=== PATIENT | male | born 1970 | race Two or more races ===

== ENCOUNTER 2021-05-08 19:40 | Emergency (ER) | payer OTHER ==
[~2021-05-08] VITALS: Ht 182.9 cm; Wt 83.9 kg
[2021-05-08] MEDS ORDERED: PERCOCET 5-3251 EACH PO (22:49)
== END 2021-05-09 01:14 | disposition home or self-care (01) ==
LOC: ER 19:40
DX: N50.819 Testicular pain, unspecified (principal); T81.49XA Infection following a procedure, other surgical site, initial encounter; R10.30 Lower abdominal pain, unspecified

== ENCOUNTER 2025-07-30 23:09 | Emergency (ER) | payer OTHER ==
[~2025-07-30] VITALS: Ht 182.9 cm; Wt 97.1 kg
[~2025-07-30 23:09] MED LIST: PERCOCET 5-3251 EACH PO
[2025-07-30 23:58] VITALS: BP 117/77; O2SAT 97
[2025-07-31] MEDS ORDERED: LACTOBACILLUS ACIDOPHILUS 1 CAP CAP PO STA ×2 (00:33→07:28)
[2025-07-31] MEDS ORDERED: HYOSCYAMINE SULFATE 0.125 MG TAB.SUBL SL STA (00:34)
[2025-07-31] MEDS ORDERED: 0.9 % SODIUM CHLORIDE 1,000 ML IV ONE (00:45)
[2025-07-31] MEDS ORDERED: LACTOBACILLUS ACIDOPHILUS 1 CAP CAP PO ONE (02:35)
[2025-07-31] MEDS ORDERED: HYOSCYAMINE SULFATE 0.125 MG TAB.SUBL ONE (02:35)
[2025-07-31 03:25] LABS: BASO % 0.4 % (0.1-1.2); EOS # 0.20 (0.04-0.54); EOS % 2.6 % (0.7-7.0); LYMPH # 1.90 (1.18-3.74); LYMPH % 25.0 % (19.3-53.1); MEAN PLATELET VOLUME 10.00 fl (9.4-12.4); MONO # 0.82 (0.24-0.82); MONO % 10.8 % (4.7-12.5); NEUT # 4.62 (1.56-6.13); NEUT % 60.9 % (34.0-71.1); RED CELL DISTRIBUTION WIDTH 13.1 % (11.6-14.4)
[2025-07-31 03:41] LABS: BUN CREA RATIO 20.0 (7.0-25.0); CREATININE SERUM 1.1 mg/dL (0.70-1.30); GFR 70.02; GLUCOSE FASTING 104.0 mg/dL (65-100); OSMOLALITY SERUM 289.0 MOSM/KG (275-295)
[2025-07-31] MEDS ORDERED: CIPROFLOXACIN IN 5 % DEXTROSE 400 MG/200 ML PIGGYBAG IV STA (03:59)
[2025-07-31] MEDS ORDERED: CIPROFLOXACIN IN 5 % DEXTROSE 400 MG/200 ML PIGGYBAG IV ONE (04:05)
[2025-07-31] MEDS ORDERED: METRONIDAZOLE/SODIUM CHLORIDE 500 MG/100 ML PIGGYBACK IV STA (07:28)
[2025-07-31] MEDS ORDERED: METRONIDAZOLE/SODIUM CHLORIDE 500 MG/100 ML PIGGYBACK IV ONE (07:51)
== END 2025-07-31 10:07 | disposition home or self-care (01) ==
LOC: ER 23:09
PROVIDERS: General Practice
DX: A08.8 Other specified intestinal infections (principal)